=== PATIENT | female | born 1940 | race Caucasian/White ===

== ENCOUNTER → 2017-12-28 | Outpatient (CLI) | payer OTHER ==
[~2017-12-28] MED LIST: VALIUM5 MG PO
== END | disposition home or self-care (01) ==
DX: R13.14 Dysphagia, pharyngoesophageal phase (principal); R13.11 Dysphagia, oral phase; G20 Parkinson's disease; K21.9 Gastro-esophageal reflux disease without esophagitis
CPT/HCPCS: 92611 GN; G8996 GN; G8997 GN; G8998 GN